=== PATIENT | female | born 1980 | race African-American/Black ===

== ENCOUNTER 2017-03-19 23:07 | Emergency (ER) | payer OTHER ==
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
[~2017-03-19 23:07] MED LIST: ALBUTEROL MININEB; ALBUTEROL17 GM; ALBUTEROL17 GM INH; AMOXICILLIN875 MG PO; ANTIVERT PO; BENZONATATE200 M1 PO; FLAGYL PO; FLEXERIL PO; IBUPROFEN800 MG PO; MOTRIN600 MG PO; NAPROSYN500 MG PO; NO MEDICATIONS; PHENERGAN25 M1 PO; PREDNISONE PO; SYMBICORT INH; TRAMADOL HCL50 M2 PO; VICODIN 5/1 TAB 5/50 PO; VOLTAREN75 MG PO; ZITHROMAX PO; ZOFRANODT SL; ZYRTEC10 M1 PO
== END 2017-03-19 23:28 | disposition home or self-care (01) ==
LOC: CED 23:07
DX: S39.012A Strain of muscle, fascia and tendon of lower back, initial encounter (principal); S29.012A Strain of muscle and tendon of back wall of thorax, initial encounter; F17.200 Nicotine dependence, unspecified, uncomplicated; Z79.899 Other long term (current) drug therapy; V49.60XA Unspecified car occupant injured in collision with unspecified motor vehicles in traffic accident, initial encounter; Y92.410 Unspecified street and highway as the place of occurrence of the external cause; Y99.9 Unspecified external cause status
CPT/HCPCS: 72072; 72100; 99284